=== PATIENT | male | born 1950 | race Caucasian/White ===

== ENCOUNTER 2020-09-01 08:36 | Day surgery (SDC) | payer MEDICARE, BC ==
[2020-08-30 13:45] VITALS: BMI 32.8
[2020-09-01 09:48] LABS: #Basophils 0.1 thou/uL (0.0-0.2); #Eosinphils 0.3 thou/uL (0.0-0.7); #Lymphocytes 3.8 thou/uL (1.20-3.40); #Monocytes 1.1 thou/uL (0.11-0.59); #Neutrophils 11.6 thou/uL (1.40-6.50); %Basophils 0.5 % (0.0-1.0); %Eosinophils 1.9 % (0.0-10.0); %Lymphocytes 22.4 % (21.0-51.0); %Monocytes 6.5 % (0.0-10.0); %Neutrophils 68.7 % (42.0-75.0); Hemoglobin 9.7 g/dL (14.0-18.0); Mean Corpuscular HGB CONC 35.3 g/dL (32.0-36.0); Mean Corpuscular Hemoglobin 32.2 pg (27.0-31.0); Mean Corpuscular Volume 91.2 fL (78.0-98.0); Mean Platelet Volume 6.6 fL (7.4-10.4); Platelet Count 341 thou/uL (130-400); RBC Distribution Width 12.8 % (11.5-14.5); Red Blood Cell (RBC) Count 3.01 mill/uL (4.70-6.10); White Blood Cell (WBC) Count 16.9 thou/uL (4.8-10.8)
[2020-09-01 09:55] LABS: PTT 31.3 sec (22.9-36.1); Prothrombin Time 13.1 sec (12.0-14.7)
[2020-09-01 10:04] VITALS: BP 141/81; TEMP 98.6
[2020-09-01] MEDS ORDERED: Sodium Bicarbonate 2.5 MEQ/5 ML VIAL ONE (10:31)
== END 2020-09-01 12:00 | disposition home or self-care (01) ==
LOC: CT 08:36
PROVIDERS: ATTEND Internal Medicine Hematology & Oncology
PROC: 07DR3ZX Extraction of Iliac Bone Marrow, Percutaneous Approach, Diagnostic (ICD-10-PCS; principal; 2020-09-01)
DX: C90.00 Multiple myeloma not having achieved remission (principal); D63.0 Anemia in neoplastic disease; N17.9 Acute kidney failure, unspecified; E11.9 Type 2 diabetes mellitus without complications; I10 Essential (primary) hypertension; Z79.899 Other long term (current) drug therapy; Z90.5 Acquired absence of kidney
CPT/HCPCS: 20225; 77002; 85025; 85097; 85610; 85730; 88184; 88237; 88264; 88280; 88305; 88311; 88313; 88341; 88342; 88365; 90471; 90732; G0009

== ENCOUNTER 2020-09-05 11:15 | Outpatient (CLI) | payer MEDICARE, BC | END 2020-09-05 11:16 | disposition home or self-care (01) | LOC: PET 11:15 | PROVIDERS: ATTEND Internal Medicine Hematology & Oncology | DX: C90.00 Multiple myeloma not having achieved remission (principal) | CPT/HCPCS: 78815; A9552 ==